=== PATIENT | female | born 1995 | race Native Hawaiian/Other Pacific Islander ===

== ENCOUNTER 2021-11-13 15:35 | Outpatient (CLI) | payer BC | END 2021-11-13 20:03 | disposition home or self-care (01) | LOC: US 15:35 | PROVIDERS: ATTEND Nurse Practitioner Family | DX: R94.6 Abnormal results of thyroid function studies (principal) ==

== ENCOUNTER 2022-10-19 09:10 | Outpatient (CLI) | payer BC | END 2022-10-19 19:12 | disposition home or self-care (01) | LOC: RESP 09:10 | PROVIDERS: ATTEND Internal Medicine | DX: R06.02 Shortness of breath (principal) ==